=== PATIENT | female | born 1995 | race African-American/Black ===

== ENCOUNTER 2020-03-10 23:08 | Emergency (ER) | payer OTHER, SELFPAY ==
[2020-03-10 23:21] VITALS: BP 129/83; PULSE 56; RESP 16; TEMP 36.4; O2SAT 100
[2020-03-11 00:23] LABS: Add Urine Microscopic? YES; Appearance Urine Clear (Clear); Bacteria Urine Trace /hpf; Bilirubin Urine Negative (Negative); Blood Urine 2+ (Negative); Color Urine Straw (Yellow); Glucose Urine UA Negative (Negative); Ketones Urine Negative (Negative); Leukocyte Esterase Ur 3+ LEU/UL (Negative); Mucus Urine Rare /lpf; Nitrate Urine Negative (Negative); Protein Urine Negative (Negative); Specific Grav Ur 1.013 (1.001-1.035); Squamous Epithelial Cell Urine Many /hpf (Few); Urobilinogen Urine Negative mg/dL (<2.0); WBC Urine >75 /hpf
[2020-03-11] MEDS: CEPHALEXIN 500 MG CAPSULE PO (01:23)
--- NOTE | 2020-03-11 01:50 | ED.GENADULT ---
HPI - General Adult General Chief complaint: Vaginal Bleeding Stated complaint: 7 wks preg, vag bleeding and abd pain Time Seen by Provider: 03/10/20 23:18 History of Present Illness HPI narrative: Patient is a 24-year-old female who presents ER after noticing some blood when she wiped after using the restroom. Patient is 7 weeks and 1 day . She went to [place] earlier in the week and had an ultrasound that showed no IUP. At that time she had been diagnosed with a UTI but did not receive any medications. She is noticed that she started having cramping again today the blood in the morning and the blood this evening when she wiped after urinating. No clots. The blood was pink. She has not established care with an OB. Unsure what her blood type is. Denies risk for STI. No fevers or chills or sweats. No flank pain. LMP was in January. She is G1, P0. Related Data Home Medications Medication Instructions Recorded Confirmed No Home Medications 03/10/20 03/10/20 Allergies Allergy/AdvReac Type Severity Reaction Status Date / Time No Known Allergies Allergy Verified 03/10/20 23:46 Review of Systems Review of Systems: All systems reviewed & are unremarkable except as noted in HPI and below Constitutional: Constitutional: Denies chills, Denies fever(s) and Denies weakness Gastrointestinal: Gastrointestinal: Reports abdominal pain, Denies nausea and Denies vomiting Genitourinary: Genitourinary: Denies abnormal vaginal bleeding, Reports hematuria, Denies nocturia, Denies dysuria, Denies flank pain, Denies urinary incontinence and Denies vaginal discharge PMFSH Past Medical History Medical History (Updated 03/11/20 @ 01:54 by Franklin Ochoa MD) Healthy female adult Surgical History Surgical History (Updated 03/11/20 @ 01:52 by Franklin Ochoa MD) No history of previous surgery Social History Social History (Updated 03/11/20 @ 01:52 by Franklin Ochoa MD) Smoking status: Former smoker Gender identity (if verbalized by the patient): Female Exam Narrative: Exam Narrative: GENERAL: Well-appearing, well-nourished, and in no acute distress. HEAD: Normocephalic, atraumatic. ENT: Mucous membranes moist. CHEST: Clear to auscultation. No respiratory distress. HEART: Regular rate and rhythm. Normal peripheral pulses. ABDOMEN: Soft, nontender, nondistended. Pelvic: Normal external genitalia, moderate amount of white discharge within the vagina, cervix appears normal without erythema in the office is closed. No blood noted. EXTREMITIES: Normal range of motion. No edema. NEURO: Alert and oriented x3. Course Course Emergency Course: Blood type O+. Patient appears to have UTI. Has already had confirmatory ultrasound at outside hospital so no need to repeat at this time. We will give OB referral here and recommend following up on swab results that were sent to lab. Vital Signs Vital signs: Vital Signs Temperature 97.6 F 03/10/20 23:21 Pulse Rate 56 L 03/10/20 23:21 Respiratory Rate 16 03/10/20 23:21 Blood Pressure 129/83 03/10/20 23:21 Pulse Oximetry 100 03/10/20 23:21 Temperature 97.6 F 03/10/20 23:21 Pulse Rate 56 L 03/10/20 23:21 Respiratory Rate 16 03/10/20 23:21 Blood Pressure 129/83 03/10/20 23:21 Pulse Oximetry 100 03/10/20 23:21 Medical Decision Making Vital Signs Vital Signs: Vital Signs Temperature 97.6 F 03/10/20 23:21 Pulse Rate 56 L 03/10/20 23:21 Respiratory Rate 16 03/10/20 23:21 Blood Pressure 129/83 03/10/20 23:21 Pulse Oximetry 100 03/10/20 23:21 Temperature 97.6 F 03/10/20 23:21 Pulse Rate 56 L 03/10/20 23:21 Respiratory Rate 16 03/10/20 23:21 Blood Pressure 129/83 03/10/20 23:21 Pulse Oximetry 100 03/10/20 23:21 Lab Data Labs: Lab Results 03/10/20 03/11/20 Range/Units 23:55 00:23 Urine Color Straw (Yellow) Urine Appearance Clear (Clear) Urine pH 6.0 (5.0-9.0)
[2020-03-11 01:59] VITALS: BP 120/69; PULSE 64; RESP 15; O2SAT 100
== END 2020-03-11 02:00 | disposition home or self-care (01) ==
PROVIDERS: Emergency Provider Emergency Medicine
DX: O23.41 Unspecified infection of urinary tract in pregnancy, first trimester (principal); Z3A.01 Less than 8 weeks gestation of pregnancy
CPT/HCPCS: 36415; 81001; 81025; 86850; 86900; 86901; 87070; 87077; 87086; 87088; 87147; 87186; 87491; 87591; 87808; 99284; A9270